=== PATIENT | female | born 1960 | race Caucasian/White ===

== ENCOUNTER 2024-02-12 07:15 | Day surgery (SDC) | payer BC ==
[~2024-02-12 07:15] MED LIST: Acetaminophen 325 MG Tab PO SCH; Lidocaine 2% 5 ML SDV ONE; Midazolam 1 MG/ML 2 ML SDV ONE; Propofol 200 MG/20 ML SDV ONE; Ropivacaine 0.5% 5 MG/ML 30 ML SDV ONE; Sodium Chloride 0.9% 10 ML Syringe FLUSH PRN; Sodium Chloride 0.9% 10 ML Syringe FLUSH SCH
[2024-02-12] MEDS: Lactated Ringers 1,000 ML IV SCH (07:45)
[2024-02-12] MEDS ORDERED: ceFAZolin 2 GM Vial ONE (07:49)
[2024-02-12] MEDS ORDERED: dexmedeTOMIDine HCl 200 MCG/2 ML SDV ONE (07:58)
[2024-02-12] MEDS ORDERED: Dexamethasone 4 MG/ML 5 ML MDV ONE (07:58)
[2024-02-12] MEDS ORDERED: Ondansetron 4 MG/2 ML SDV ONE (07:58)
[2024-02-12] MEDS: Pregabalin 25 MG Cap PO ONE (08:13)
[2024-02-12] MEDS: Acetaminophen 325 MG Tab PO ONE (08:13)
[2024-02-12] MEDS: oxyCODONE ER 10 MG TAB.ER PO ONE (08:13)
[2024-02-12] MEDS: Famotidine 20 MG/2 ML SDV IVPUSH SCH (08:14)
[2024-02-12] MEDS: Ondansetron 4 MG/2 ML SDV ONE (11:30)
[2024-02-12] MEDS: oxyCODONE 5 MG Tab PO PRN ×2 (12:05→14:38)
[2024-02-12] MEDS ORDERED: oxyCODONE 5 MG Tab PO PRN (12:08)
[2024-02-12] MEDS ORDERED: Ondansetron 4 MG/2 ML SDV IVPUSH ONE (12:15)
[2024-02-12] MEDS: Scopalamine 1mg/3day Transdermal Patch TOP ONE (14:37)
[2024-02-12] MEDS: Ondansetron 4 MG Tab.DIS PO ONE (14:37)
[2024-02-13] MEDS: Morphine 8 MG, EPINEPHrine 0.3 MG, Cefuroxime 750 MG, Ketorolac 30 MG, Sodium Chloride ... PRN (10:30)
[2024-02-13] MEDS: Tranexamic Acid 1,000 MG/10 ML Vial ONE (10:31)
[2024-02-13] MEDS: Vancomycin 1 GM SDV ONE (10:31)
== END 2024-02-12 14:55 | disposition home or self-care (01) ==
LOC: EDSEX 07:15 → JD.SDS 07:15
PROVIDERS: ATTEND Orthopaedic Surgery
DX: M17.12 Unilateral primary osteoarthritis, left knee (principal); I10 Essential (primary) hypertension; K21.9 Gastro-esophageal reflux disease without esophagitis; E78.00 Pure hypercholesterolemia, unspecified; Z79.899 Other long term (current) drug therapy; Z88.0 Allergy status to penicillin; Z88.2 Allergy status to sulfonamides
CPT/HCPCS: 0055T; 27447; 64447; 73560; 97110; 97161; A9270; C1713; C1776; J0171; J0690; J0697; J1100; J1885; J2250; J2270; J2405; J2704; J2795; J3370; J3490; J7120; 01402; 64450